=== PATIENT | female | born 2000 | race Caucasian/White ===

== ENCOUNTER 2025-02-01 04:09 | Emergency (ER) | payer BC ==
[~2025-02-01] VITALS: Ht 177.8 cm; Wt 122.7 kg
--- NOTE | 2025-02-01 04:36 | Physician Documentation ---
History of Present Illness Chief Complaint: Abdominal Pain Stated Complaint: ABDOMINAL PAIN Time Seen by MD: 04:36 HPI 24-year-old female, reported history of a large gallstone, who presents with right upper quadrant pain She tells me that several months back, she had similar pain, and was diagnosed with a single large gallstone. She was not referred to a surgeon. She returns today with right upper quadrant pain. She states the pain has been present for about 2 hours, has been fluctuating in intensity, currently as a 5/10. It does radiate to the back. She reports some associated nausea. No fevers, chills, vomiting, diarrhea, dysuria, hematuria, or other associated symptoms. No medications tried, nothing else helps. Medication Reconciliation Allergies: Coded Allergies: No Known Allergies (Unverified , 02/01/25) Review of Systems Constitutional: Denies: fever Gastrointestinal: Reports: abdominal pain, nausea; Denies: vomiting Physical Exam Vital Signs: Temperature: 99.2, Source: Oral, Heart Rate: 105, Respiratory Rate: 20, BP: 136/90, Pulse Oximetry: 96, Weight: 122.730 Physical Exam General: This is an overall healthy-appearing young person sitting calmly in bed, not in distress HEENT: Atraumatic, oropharynx is moist Heart: Mild tachycardic, appears regular Lungs: normal work of breathing, normal oxygen saturation on room air Abdomen: Soft, nondistended. Focal tenderness to palpation in the right upper quadrant, otherwise nontender, no rebound or guarding Back: No CVA tenderness to percussion in the right Neuro: Alert and oriented Psychiatric: Calm and cooperative with exam Progress Results/Orders Results/Orders Orders - SHERRY PINK MD Urinalysis, Cult If Indicated (02/01/25 04:18) Cbc/Diff (02/01/25 04:18) BMP (02/01/25 04:18) Lipase (02/01/25 04:18) CMP (02/01/25 04:18) Straight Cath For Urine Sample (02/01/25 04:18) Vital Signs 02/01/25 04:14 Temp 99.2 Pulse 105 Resp 20 B/P (MAP) 136/90 Pulse Ox 96 EKG/XRAY/CT/US/VASC/MRI Vascular : Impression INDICATION: Right upper quadrant pain, history of gallstone TECHNIQUE: Multiple real-time sonographic images were obtained of the right upper quadrant. COMPARISON: None FINDINGS: The liver demonstrates normal homogeneous echotexture without focal mass lesions. The liver measures 14.8 cm. Normal hepatopetal portal flow identified. No evidence of pleural effusion or abdominal ascites. There is no intrahepatic or extrahepatic ductal dilatation. The common duct measures 0.3 cm. The gallbladder is without evidence of stone or sludge. The gallbladder wall measures 0.2 cm and is within normal limits. Negative sonographic feliciano's sign. The right kidney measures 10.3 x 5.1 x 4.8 cm. The right kidney is normal in contour, size, and shape. The echogenicity is normal. There is no hydronephros is. The pancreas is not well visualized due to overlying bowel gas. IMPRESSION: 1. Unremarkable right upper quadrant sonogram. Medical Decision Making Differential Dx:Considerations: Include: Appendicitis, Cholelithasis, Constipation, Diverticular disease, Hepatitis, Pancreatitis Assessment 24-year-old female with a reported history of a gallstone, presenting with right upper quadrant pain. Here in the ED, she is tender, in the right upper quadrant only. No other significant symptoms except for mild nausea. No CVA tenderness to percussion. No fever. She declined any pain or nausea medication at this time. I took over care of this patient from previous ED physician. This is a 24-year-old female presenting for right upper quadrant abdominal pain. Her lab workup is grossly unremarkable. We did perform a ultrasound of the gallbladder and that was completely normal with no stones, sludge or gallbladder wall thickening. The patient slept comfortably in the ED. She was given some Protonix. On reassessment the patient was doing fine. No further symptoms or tenderness on exam. I suspect some of her symptoms from a likely has been due to some gastritis. Patient will be discharged home with the instructions to follow up with primary care physician in the next 2-3 days. Return to the ED with any acutely worsening symptoms. - Arley Schulz MD Departure Disposition: HOME / SELF CARE / HOMELESS Impression: Primary Impression: Abdominal pain Additional Impression: Acute gastritis Condition: Improved Discharge Instructions: Abdominal Pain (Nonspecific) Additional Instructions: Follow up with her primary care physician in the next 1-2 weeks. Return to the ED with any acutely worsening symptoms. Referrals: NO PRIMARY CARE PROVIDER (PCP) Signature Scribe Signature: 1 Attestation: 1 SHERRY PINK MD Feb 01, 2025 04:36 ARLEY SCHULZ MD Feb 01, 2025 10:58
[2025-02-01] MEDS: ondansetron/PF 4mg/2ml inj IV ONE (05:05)
[2025-02-01 05:15] LABS: BASOPHILS % (AUTO) 0.4 % (0-1); EOSINOPHILS # (AUTO) 0.1 X10'3 (0-0.9); EOSINOPHILS % (AUTO) 1.8 % (0-6); HEMATOCRIT 44.2 % (35.0-45.0); HEMOGLOBIN 15.2 g/dl (12.0-16.0); LYMPHOCYTES % (AUTO) 27.4 % (21-51); MEAN CORPUSCULAR HEMOGLOBIN 30.8 PG (27.0-31.0); MEAN CORPUSCULAR HGB CONC 34.5 g/dL (33.0-36.5); MEAN CORPUSCULAR VOLUME 89.3 FL (78-98); MEAN PLATELET VOLUME 10.3 FL (7.4-10.4); MONOCYTES # (AUTO) 0.6 X10'3 (0-0.9); MONOCYTES % (AUTO) 7.6 % (2-12); NEUTROPHILS # (AUTO) 4.7 X10'3 (1.8-7.7); NEUTROPHILS % (AUTO) 62.8 % (42-75); PLATELET COUNT 239 X10'3 (140-440); RED BLOOD COUNT 4.95 X10'6 (4.20-5.60); RED CELL DISTRIBUTION WIDTH 12.9 % (11.5-14.5); WHITE BLOOD COUNT 7.5 X10'3 (4.5-11.0)
[2025-02-01 05:28] LABS: ALANINE AMINOTRANSFERASE 47 U/L (12-78); ALBUMIN 4.2 G/DL (3.4-5.0); ALBUMIN/GLOBULIN RATIO 1.1 (1.1-1.5); ALKALINE PHOSPHATASE 104 IU/L (46-116); ANION GAP 10 (8-16); ASPARTATE AMINO TRANSFERASE 16 U/L (10-37); BILIRUBIN,TOTAL 0.3 MG/DL (0.1-1.0); BLOOD UREA NITROGEN 25 MG/DL (7-18); CALCIUM 9.2 MG/DL (8.5-10.1); CHLORIDE 104 MMOL/L (99-107); CREATININE 1.19 MG/DL (0.40-0.90); GLUCOSE 103 MG/DL (70-104); LIPASE 25 U/L (16-77); POTASSIUM 3.8 MMOL/L (3.5-5.1); SODIUM 138 MMOL/L (135-145); TOTAL CARBON DIOXIDE 24.2 MMOL/L (24-32); TOTAL PROTEIN 8.2 G/DL (6.4-8.2); eCRCL 78 ML/MIN; eGFR 55 ML/MIN
--- NOTE | 2025-02-01 06:45 | RADIOLOGY REPORT ---
INDICATION: Right upper quadrant pain, history of gallstone TECHNIQUE: Multiple real-time sonographic images were obtained of the right upper quadrant. COMPARISON: None FINDINGS: The liver demonstrates normal homogeneous echotexture without focal mass lesions. The liver measures 14.8 cm. Normal hepatopetal portal flow identified. No evidence of pleural effusion or abd ominal ascites. There is no intrahepatic or extrahepatic ductal dilatation. The common duct measures 0.3 cm. The gallbladder is without evidence of stone or sludge. The gallbladder wall measures 0.2 cm and is w ithin normal limits. Negative sonographic feliciano's sign. The right kidney measures 10.3 x 5.1 x 4.8 cm. The right kidney is normal in contour, size, and shape . The echogenicity is normal. There is no hydronephrosis. The pancreas is not well visualized due to overlying bowel gas. IMPRESSION: 1. Unremarkable right upper quadrant sonogram.
[2025-02-01] MEDS: pantoprazole 40 MG vial IV ONE (06:48)
[2025-02-01] MEDS: normal saline 1000ml 1,000 ML IV ONE (06:50)
[2025-02-01 07:56] LABS: BILIRUBIN,URINE NEGATIVE (Neg); CLARITY,URINE CLEAR (Clear); COLOR,URINE YELLOW (Yellow); GLUCOSE, URINE NEGATIVE (Neg); KETONES,URINE NEGATIVE (Neg); LEUKOCYTE ESTERASE ,URINE NEGATIVE (Neg); NITRITES, URINE NEGATIVE (Neg); OCCULT BLOOD,URINE NEGATIVE (Neg); PROTEIN,URINE NEGATIVE (Neg); UA COLLECTION TYPE URINAL; UROBILINOGEN,URINE 0.2 E.U/dL (0.2-1.0)
[2025-02-01 11:09] VITALS: BP 109/73; PULSE 69; RESP 15; TEMP 99.2; O2SAT 98
== END 2025-02-01 11:12 | disposition home or self-care (01) ==
LOC: ER 04:10
DX: K29.00 Acute gastritis without bleeding (principal)
CPT/HCPCS: 36415; 76700; 80053; 81003; 83690; 85025; 96365; 96375; 99285; J2405; J2470; J7030

== ENCOUNTER 2025-02-03 00:33 | Emergency (ER) | payer BC ==
[~2025-02-03] VITALS: Ht 177.8 cm; Wt 125.6 kg
[2025-02-03 00:40] VITALS: TEMP 98.3
[2025-02-03 00:58] LABS: BASOPHILS % (AUTO) 0.2 % (0-1); EOSINOPHILS % (AUTO) 0.4 % (0-6); LYMPHOCYTES # (AUTO) 0.9 X10'3 (1.1-4.8); MEAN CORPUSCULAR HEMOGLOBIN 29.7 PG (27.0-31.0); MEAN CORPUSCULAR HGB CONC 33.4 g/dL (33.0-36.5); MEAN PLATELET VOLUME 9.5 FL (7.4-10.4); MONOCYTES # (AUTO) 0.5 X10'3 (0-0.9); NEUTROPHILS # (AUTO) 10.1 X10'3 (1.8-7.7); NEUTROPHILS % (AUTO) 87.4 % (42-75); PLATELET COUNT 209 X10'3 (140-440); RED BLOOD COUNT 4.72 X10'6 (4.20-5.60); RED CELL DISTRIBUTION WIDTH 12.9 % (11.5-14.5); WHITE BLOOD COUNT 11.5 X10'3 (4.5-11.0)
[2025-02-03 01:14] LABS: ALANINE AMINOTRANSFERASE 48 U/L (12-78); ALBUMIN/GLOBULIN RATIO 1.1 (1.1-1.5); ALKALINE PHOSPHATASE 101 IU/L (46-116); ANION GAP 9 (8-16); ASPARTATE AMINO TRANSFERASE 22 U/L (10-37); BILIRUBIN,TOTAL 0.3 MG/DL (0.1-1.0); BLOOD UREA NITROGEN 14 MG/DL (7-18); CHLORIDE 102 MMOL/L (99-107); CREATININE 1.08 MG/DL (0.40-0.90); GLUCOSE 152 MG/DL (70-104); LIPASE 21 U/L (16-77); POTASSIUM 3.8 MMOL/L (3.5-5.1); SODIUM 138 MMOL/L (135-145); TOTAL CARBON DIOXIDE 27.3 MMOL/L (24-32); TOTAL PROTEIN 7.6 G/DL (6.4-8.2); eCRCL 86 ML/MIN; eGFR 62 ML/MIN
--- NOTE | 2025-02-03 02:02 | Physician Documentation ---
History of Present Illness ~ Chief Complaint: Abdominal Pain Stated Complaint: BACK PAIN Time Seen by MD: 02:00 HPI Patient presents to the emergency room sudden onset back pain onset 2 hours prior to arrival in the emergency room. Patient states initially was not very bad then got worse and decided come to the emergency room and pain has improved since being in the emergency room. Seen here a few days ago and had an ultrasound performed of gallbladder which was negative. Denies dysuria. Took some unknown pain medicine a few hours ago prior to arrival. Medication Reconciliation Allergies: Coded Allergies: No Known Allergies (Unverified , 02/01/25) Review of Systems ROS All review of systems negative except as per HPI Physical Exam Vital Signs: Temperature: 98.3, Source: Oral, Heart Rate: 76, Respiratory Rate: 16, BP: 145/93, Pulse Oximetry: 97, Weight: 125.600 Oxygen Flow Rate: 0 Physical Exam General: Patient is awake, alert, oriented x4 in no acute distress Head: Normocephalic and atraumatic. Eyes: Conjunctival normal. EOMI. PERRL. ENT: Mucous membranes moist. Neck: Supple, trachea is midline. Chest: Clear to auscultation bilaterally without rales, rhonchi, or wheezes. There is no accessory muscle use or retractions. Cardiac: RRR without murmurs, gallops, or rubs. Back: No midline spinal or CVA tenderness. Skin: Warm and dry with no significant rash appreciated. Neuro: Cranial nerves II-XII grossly intact. No focal neuro deficits. Patient ambulating without difficulty. Progress Results/Orders Results/Orders Orders - RAFAEL MERA MD Urinalysis, Cult If Indicated (02/03/25 00:43) Lumbar Spine Limited (02/03/25 02:21) Completed Orders - RAFAEL MERA MD Cbc/Diff (02/03/25 00:43) Lipase (02/03/25 00:43) CMP (02/03/25 00:43) Ibuprofen Tablet (Motrin Tablet) (02/03/25 02:10) Acetaminophen 325mg Tablet (Tylenol Tabl (02/03/25 02:10) Lumbar Spine Limited (02/03/25 02:21) Vital Signs 02/03/25 00:40 Temp 98.3 Pulse 76 Resp 16 B/P (MAP) 145/93 Pulse Ox 97 O2 Flow Rate 0 Laboratory Tests Test 02/03/25 00:50 White Blood Count 11.5 H Red Blood Count 4.72 Hemoglobin 14.0 Hematocrit 42.0 Mean Corpuscular Volume 89.0 Mean Corpuscular Hemoglobin 29.7 Mean Corpuscular Hemoglobin Concent 33.4 Red Cell Distribution Width 12.9 Platelet Count 209 Mean Platelet Volume 9.5 Neutrophils (%) (Auto) 87.4 H Lymphocytes (%) (Auto) 8.0 L Monocytes (%) (Auto) 4.0 Eosinophils (%) (Auto) 0.4 Basophils (%) (Auto) 0.2 Neutrophils # (Auto) 10.1 H Lymphocytes # (Auto) 0.9 L Monocytes # (Auto) 0.5 Eosinophils # (Auto) 0.0 Basophils # (Auto) 0.0 CBC Comment Sodium Level 138 Potassium Level 3.8 Chloride Level 102 Carbon Dioxide Level 27.3 Anion Gap 9 Blood Urea Nitrogen 14 Creatinine 1.08 H Estimated GFR/1.73 m2 62 BUN/Creatinine Ratio 13.0 Glucose Level 152 H Calcium Level 9.0 Total Bilirubin 0.3 Aspartate Amino Transf (AST/SGOT) 22 Alanine Aminotransferase (ALT/SGPT) 48 Alkaline Phosphatase 101 Total Protein 7.6 Albumin 4.0 Globulin 3.6 Albumin/Globulin Ratio 1.1 Lipase 21 Chemistry Comments Medical Decision Making Findings Patient presents to the emergency room with back pain as per HPI. Differentials include but are not limited to kidney stone, aortic pathology, musculoskeletal pain, referred pain therefore labs ordered which were reassuring. Slight elevation compared to previous visit regarding white blood cell count. Patient's pain that has just over spine with no tenderness to palpation. I feel the risk of radiation exposure outweighs any benefit for CT scan. X-ray is performed which was reassuring. Departure Disposition: HOME / SELF CARE / HOMELESS Impression: Primary Impression: Back pain Condition: Stable Discharge Instructions: Acute Back Pain, Adult Additional Instructions: You may take ibuprofen and Tylenol together for pain Referrals: NO PRIMARY CARE PROVIDER (PCP) Prescriptions Acetaminophen (Tylenol Arthritis) 650 Mg Tablet.er 2 TAB PO Q6H for 30 Days, #60 TAB 0 Refills Prov: RAFAEL MERA MD 02/03/25 Ibuprofen* (Motrin*) 400 Mg Tablet 800 MG PO Q8H, #30 TAB Prov: RAFAEL MERA MD 02/03/25 Education Educated: Patient Educated regarding: diagnosis, treatment, need for follow up Signature Scribe Signature: No scribe Attestation: The note accurately reflects work and decisions made by me.Rafael Mera MD 02/03/25 02:51 RAFAEL MERA MD Feb 03, 2025 02:02
--- NOTE | 2025-02-03 02:41 | RADIOLOGY REPORT ---
INDICATION: Back pain COMPARISON: None TECHNIQUE: 3 views of the lumbar spine were obtained. FINDINGS: The lumbar vertebral alignment is normal. Mild L5-S1 disc height loss with minimal adjacent endplate sclerosis. The intervertebral disc spaces are otherwise well-maintained. No significant facet arthropathy is noted. No acute fracture, vertebral compression deformity or aggressive osseous lesions. The paravertebral soft tissues are grossly unremarkable. IMPRESSION: 1. Mild L5-S1 disc height loss without evidence of acute osseous abnormality.
[2025-02-03] MEDS ORDERED: IBUP-1984 PO (02:50)
[2025-02-03] MEDS ORDERED: ACET-2971 PO (02:51)
[2025-02-03 03:03] LABS: BILIRUBIN,URINE NEGATIVE (Neg); CLARITY,URINE CLEAR (Clear); COLOR,URINE YELLOW (Yellow); GLUCOSE, URINE NEGATIVE (Neg); KETONES,URINE NEGATIVE (Neg); LEUKOCYTE ESTERASE ,URINE NEGATIVE (Neg); NITRITES, URINE NEGATIVE (Neg); OCCULT BLOOD,URINE NEGATIVE (Neg); PH,URINE 6.5 (4.8-8.0); PROTEIN,URINE NEGATIVE (Neg); UROBILINOGEN,URINE 0.2 E.U/dL (0.2-1.0)
[2025-02-03 03:04] LABS: UA COLLECTION TYPE CLN CATCH MIDSTREAM
[2025-02-03 03:16] VITALS: BP 128/66; PULSE 83; RESP 15; O2SAT 98
[2025-02-03] MEDS: ibuprofen tablet 400 MG TABLET PO ONE (03:20)
[2025-02-03] MEDS: acetaminophen 325mg tablet PO ONE (03:20)
== END 2025-02-03 03:26 | disposition home or self-care (01) ==
LOC: ER 00:33
DX: M54.9 Dorsalgia, unspecified (principal)
CPT/HCPCS: 36415; 72100; 80053; 81003; 83690; 85025; 99284